=== PATIENT | female | born 1955 | race Asian ===

== ENCOUNTER 2018-09-03 10:17 | Inpatient (IN) | payer MEDICAID ==
[~2018-09-03] VITALS: Ht 154.9 cm; Wt 72.1 kg
[2018-09-03] MEDS ORDERED: GLIP5 PO (10:24)
[2018-09-03] MEDS ORDERED: LOSA25TA41 PO (10:24)
[2018-09-03] MEDS ORDERED: AMLO2.5T4 PO (10:24)
[2018-09-03 10:35] LABS: GLUCOSE,POINT OF CARE 280 MG/DL (70-110)
[2018-09-03] MEDS ORDERED: NITROGLYCERIN 0.4 MG SUBLINGUAL TABLET #25 SL ONE (11:45)
[2018-09-03] MEDS ORDERED: ASPIRIN 325 MG TABLET PO ONE (11:45)
[2018-09-03 12:19] LABS: BASOPHILS % (AUTO) 0.5 % (0.0-2.0); EOSINOPHILS % (AUTO) 1.4 % (1.0-6.0); HEMOGLOBIN 14.2 g/dL (12.0-16.0); LYMPHOCYTES % (AUTO) 26.8 % (22.0-44.0); MEAN CORPUSCULAR HEMOGLOBIN 30.3 pg (26.0-34.0); MEAN CORPUSCULAR VOLUME 92 fL (80-100); MONOCYTES # (AUTO) 0.4 K/uL (0.1-1.0); MONOCYTES % (AUTO) 5.6 % (2.0-9.0); NEUTROPHILS # (AUTO) 4.9 K/uL (1.8-7.7); NEUTROPHILS % (AUTO) 65.7 % (40.0-70.0); PLATELET COUNT (AUTO) 190 K/uL (150-450); RED BLOOD CELL COUNT(AUTO) 4.69 MIL/uL (4.00-5.20); RED CELL DISTRIBUTION WIDTH 13.2 % (11.5-14.5)
[2018-09-03 12:25] LABS: CALCIUM, TOTAL 8.8 mg/dL (8.8-10.5); POTASSIUM 4.2 mmol/L (3.5-5.1)
[2018-09-03 12:34] LABS: ALBUMIN 3.5 g/dL (3.4-5.0); BILIRUBIN,TOTAL 1.1 mg/dL (0.1-1.0); TOTAL PROTEIN, SERUM 6.7 g/dL (6.4-8.2)
[2018-09-03 13:23] LABS: APPEARANCE,URINE CLEAR (CLEAR); BILIRUBIN,URINE NEGATIVE (NEGATIVE); GLUCOSE, URINE (UA) 100 mg/dL (NEGATIVE); KETONES,URINE NEGATIVE (NEGATIVE); LEUKOCYTE ESTERASE ,URINE NEGATIVE (NEGATIVE); NITRATE,URINE NEGATIVE (NEGATIVE); OCCULT BLOOD,URINE NEGATIVE (NEGATIVE); PROTEIN,URINE NEGATIVE (NEGATIVE); UROBILINOGEN,URINE 0.2 mg/dL (<=1.0)
[2018-09-03] MEDS ORDERED: ACETAMINOPHEN 325 MG TABLET PO PRN ×2 (13:30→19:00)
[2018-09-03] MEDS ORDERED: ATORVASTATIN CALCIUM 20 MG TABLET PO ONE (13:30)
[2018-09-03] MEDS ORDERED: METOPROLOL TARTRATE 50 MG TABLET PO ONE (13:30)
[2018-09-03] MEDS ORDERED: HEPARIN SODIUM,PORCINE 5,000 UNITS/ML VIAL IVP PRN ×2 (13:30)
[2018-09-03] MEDS ORDERED: 0.9% SODIUM CHLORIDE 10 ML SYRINGE IVP PRN ×2 (13:30→19:00)
[2018-09-03] MEDS ORDERED: HEPARIN SODIUM 25000 UNITS/D5W 250 ML IV PRN (13:30)
[2018-09-03] MEDS ORDERED: ONDANSETRON HCL 4 MG/2 ML VIAL IVP PRN ×2 (13:30→19:00)
[2018-09-03 13:37] LABS: BACTERIA,URINE Rare /HPF (None Seen); SQUAMOUS EPITHELIAL CELL,UR Few /LPF (None Seen); WBC,URINE 0-2 /HPF (0-5)
[2018-09-03] MEDS ORDERED: HEPARIN SODIUM,PORCINE 5,000 UNITS/ML VIAL IVP ONE (13:45)
[2018-09-03 14:30] LABS: INR 0.9 (0.9-1.1); PROTHROMBIN TIME 9.9 SEC (9.4-11.6)
[2018-09-03] MEDS: ASPIRIN 81 MG EC TABLET PO SCH (14:45)
[2018-09-03] MEDS: ATORVASTATIN CALCIUM 40 MG TABLET PO SCH (14:45)
[2018-09-03] MEDS ORDERED: FUROSEMIDE 40 MG/4 ML VIAL IVP ONE (14:45)
[2018-09-03] MEDS: PANTOPRAZOLE SODIUM 40 MG/VIAL IVP SCH (15:57)
[2018-09-03] MEDS: CARVEDILOL 3.125 MG TABLET PO SCH ×2 (15:58→21:20)
[2018-09-03] MEDS: LOSARTAN POTASSIUM 25 MG TABLET PO SCH ×2 (15:58→21:20)
[2018-09-03] MEDS: NITROGLYCERIN 2% (1 GM=INCH) PACKET TP SCH (16:00)
[2018-09-03] MEDS ORDERED: GLUCAGON,HUMAN RECOMBINANT 1 MG VIAL IM PRN (19:00)
[2018-09-03] MEDS ORDERED: ZOLPIDEM TARTRATE 5 MG TABLET PO PRN (19:00)
[2018-09-03] MEDS ORDERED: PANTOPRAZOLE SODIUM 40 MG/VIAL IVP SCH (19:00)
[2018-09-03] MEDS ORDERED: LOSARTAN POTASSIUM 25 MG TABLET PO SCH (19:00)
[2018-09-03] MEDS ORDERED: DEXTROSE 50%-WATER 25 GM/50 ML SYRINGE IVP PRN (19:15)
[2018-09-03] MEDS: ENOXAPARIN SODIUM 40 MG/0.4 ML PF SYRINGE SQ SCH (19:49)
[2018-09-03] MEDS ORDERED: AmLODIPine BESYLATE 2.5 MG TABLET PO SCH (21:00)
[2018-09-03] MEDS ORDERED: METOPROLOL TARTRATE 25 MG TABLET PO SCH (21:00)
[2018-09-03] MEDS: INSULIN LISPRO 100 UNITS/ML SQ PRN (21:22)
[2018-09-03 21:30] VITALS: BP 125/69
[2018-09-04] VITALS (8 sets, daily range): BP systolic 97–135; BP diastolic 47–81
[2018-09-04 03:49] LABS: GLUCOMETER DEV NAME(LOC) 5S.1; GLUCOSE,POINT OF CARE 233 MG/DL (70-110)
[2018-09-04 05:55] LABS: BASOPHILS % (AUTO) 0.7 % (0.0-2.0); EOSINOPHILS % (AUTO) 2.8 % (1.0-6.0); HEMATOCRIT 39.2 % (36-46); HEMOGLOBIN 13.2 g/dL (12.0-16.0); LYMPHOCYTES # (AUTO) 2.9 K/uL (1.0-4.8); MEAN CORPUSCULAR HEMOGLOBIN 30.5 pg (26.0-34.0); MEAN CORPUSCULAR HGB CONC 33.8 G/dL (31.0-37.0); MEAN CORPUSCULAR VOLUME 90 fL (80-100); MONOCYTES # (AUTO) 0.6 K/uL (0.1-1.0); MONOCYTES % (AUTO) 8.4 % (2.0-9.0); NEUTROPHILS # (AUTO) 3.3 K/uL (1.8-7.7); NEUTROPHILS % (AUTO) 47.1 % (40.0-70.0); PLATELET COUNT (AUTO) 184 K/uL (150-450); RED BLOOD CELL COUNT(AUTO) 4.34 MIL/uL (4.00-5.20); RED CELL DISTRIBUTION WIDTH 13.5 % (11.5-14.5)
[2018-09-04] MEDS ORDERED: PNEUMOCOCCAL VACCINE POLYVALENT 0.5 ML VIAL [PPSV23] IM ONE (06:00)
[2018-09-04 06:21] LABS: HEMOGLOBIN A1C 8.8 % (4.5-6.2)
[2018-09-04 06:33] LABS: B-TYPE NATRIURETIC PEPTIDE 783 pg/mL (0-100)
[2018-09-04 06:37] LABS: GLUCOMETER DEV NAME(LOC) 5S.2; GLUCOSE,POINT OF CARE 126 MG/DL (70-110)
[2018-09-04 06:40] LABS: ALANINE AMINOTRANSFERASE 56 U/L (12-78); ALBUMIN 2.9 g/dL (3.4-5.0); ALKALINE PHOSPHATASE 54 U/L (46-116); ANION GAP 5 mmol/L (8-16); ASPARTATE AMINOTRANSFERASE 29 U/L (15-37); BILIRUBIN,TOTAL 1.1 mg/dL (0.1-1.0); CALCIUM, TOTAL 8.5 mg/dL (8.8-10.5); CARBON DIOXIDE 29 mmol/L (22-29); CHLORIDE 104 mmol/L (98-107); CREATININE 0.76 mg/dL (0.60-1.30); GLOMERULAR FILTR. RATE CALC > 60 mL/min (>60); GLUCOSE,RANDOM 114 mg/dL (70-110); HDL CHOLESTEROL 36 mg/dL (40-60); POTASSIUM 3.2 mmol/L (3.5-5.1); SODIUM SERUM 138 mmol/L (136-145); TOTAL PROTEIN, SERUM 5.5 g/dL (6.4-8.2); TRIGLYCERIDES 94 mg/dL (15-150); UREA NITROGEN, BLOOD 13 mg/dL (7-18)
[2018-09-04 06:50] LABS: CHOLESTEROL 145 mg/dL (131-200); LDL CHOL (CALC.) 90 mg/dL (0-130)
[2018-09-04] MEDS ORDERED: POTASSIUM CHLORIDE 20 MEQ ER TABLET PO ONE (07:30)
[2018-09-04] MEDS: NITROGLYCERIN 2% (1 GM=INCH) PACKET TP SCH ×3 (08:00→14:33)
[2018-09-04] MEDS: ASPIRIN 81 MG EC TABLET PO SCH (08:41)
[2018-09-04] MEDS: PANTOPRAZOLE SODIUM 40 MG/VIAL IVP SCH (08:41)
[2018-09-04] MEDS: LOSARTAN POTASSIUM 50 MG TABLET PO SCH ×2 (08:41→20:56)
[2018-09-04] MEDS: ENOXAPARIN SODIUM 40 MG/0.4 ML PF SYRINGE SQ SCH (08:41)
[2018-09-04] MEDS: ATORVASTATIN CALCIUM 40 MG TABLET PO SCH (08:42)
[2018-09-04] MEDS: CARVEDILOL 6.25 MG TABLET PO SCH ×2 (08:42→21:00)
[2018-09-04] MEDS: FUROSEMIDE 20 MG/2 ML VIAL IVP SCH (08:42)
[2018-09-04] MEDS: INSULIN LISPRO 100 UNITS/ML SQ PRN ×3 (11:44→21:04)
[2018-09-04 13:04] LABS: GLUCOMETER DEV NAME(LOC) 5S.1; GLUCOSE,POINT OF CARE 156 MG/DL (70-110)
[2018-09-05] VITALS (18 sets, daily range): BP systolic 90–150; BP diastolic 50–91
[2018-09-05 02:37] LABS: GLUCOMETER DEV NAME(LOC) 5S.1; GLUCOSE,POINT OF CARE 184 MG/DL (70-110)
[2018-09-05 02:37] LABS: GLUCOMETER DEV NAME(LOC) 5S.1; GLUCOSE,POINT OF CARE 142 MG/DL (70-110)
[2018-09-05 06:41] LABS: BASOPHILS % (AUTO) 0.7 % (0.0-2.0); EOSINOPHILS % (AUTO) 2.4 % (1.0-6.0); HEMATOCRIT 39.9 % (36-46); HEMOGLOBIN 13.5 g/dL (12.0-16.0); LYMPHOCYTES # (AUTO) 2.1 K/uL (1.0-4.8); LYMPHOCYTES % (AUTO) 33.6 % (22.0-44.0); MEAN CORPUSCULAR HEMOGLOBIN 30.8 pg (26.0-34.0); MEAN CORPUSCULAR HGB CONC 33.8 G/dL (31.0-37.0); MEAN CORPUSCULAR VOLUME 91 fL (80-100); MONOCYTES # (AUTO) 0.6 K/uL (0.1-1.0); MONOCYTES % (AUTO) 8.9 % (2.0-9.0); NEUTROPHILS # (AUTO) 3.5 K/uL (1.8-7.7); NEUTROPHILS % (AUTO) 54.4 % (40.0-70.0); PLATELET COUNT (AUTO) 184 K/uL (150-450); RED BLOOD CELL COUNT(AUTO) 4.38 MIL/uL (4.00-5.20); RED CELL DISTRIBUTION WIDTH 13.1 % (11.5-14.5)
[2018-09-05] MEDS: INSULIN LISPRO 100 UNITS/ML SQ PRN ×3 (06:58→21:43)
[2018-09-05 07:05] LABS: ALBUMIN 3.1 g/dL (3.4-5.0); BILIRUBIN,TOTAL 0.9 mg/dL (0.1-1.0); CALCIUM, TOTAL 8.7 mg/dL (8.8-10.5); CREATININE 1.14 mg/dL (0.60-1.30); MAGNESIUM 1.9 mg/dL (1.80-2.40); POTASSIUM 3.7 mmol/L (3.5-5.1); TOTAL PROTEIN, SERUM 5.8 g/dL (6.4-8.2)
[2018-09-05] MEDS: NITROGLYCERIN 2% (1 GM=INCH) PACKET TP SCH ×4 (08:00→23:54)
[2018-09-05 08:09] LABS: GLUCOMETER DEV NAME(LOC) 5S.1; GLUCOSE,POINT OF CARE 155 MG/DL (70-110)
[2018-09-05] MEDS: PANTOPRAZOLE SODIUM 40 MG/VIAL IVP SCH (08:37)
[2018-09-05] MEDS: ASPIRIN 81 MG EC TABLET PO SCH (08:38)
[2018-09-05] MEDS: ATORVASTATIN CALCIUM 40 MG TABLET PO SCH (08:38)
[2018-09-05] MEDS: CARVEDILOL 6.25 MG TABLET PO SCH ×2 (08:39→21:42)
[2018-09-05] MEDS: LOSARTAN POTASSIUM 50 MG TABLET PO SCH ×2 (09:00→21:42)
[2018-09-05] MEDS: FUROSEMIDE 20 MG/2 ML VIAL IVP SCH (09:00)
[2018-09-05] MEDS: ENOXAPARIN SODIUM 40 MG/0.4 ML PF SYRINGE SQ SCH (09:00)
[2018-09-05] MEDS ORDERED: HEPARIN SODIUM 1000 UNITS/NS 1,000 ML ONE (11:58)
[2018-09-05] MEDS ORDERED: IOHEXOL 300 MG/ML 150 ML VIAL ONE (11:58)
[2018-09-05] MEDS ORDERED: SODIUM BICARBONATE 50 MEQ/50 ML VIAL ONE (11:58)
[2018-09-05] MEDS ORDERED: LIDOCAINE/PF 1% 30 ML VIAL ONE (11:58)
[2018-09-05] MEDS ORDERED: FentaNYL CITRATE-PF 100 MCG/2 ML VIAL ONE (12:39)
[2018-09-05] MEDS ORDERED: MIDAZOLAM HCL 2 MG/2 ML VIAL ONE (12:40)
[2018-09-05] MEDS ORDERED: HEPARIN SODIUM 2,000 UNITS in HEPARIN SODIUM 1000 UNITS/NS 1,000 ML IARTER ONE (12:44)
[2018-09-05] MEDS ORDERED: SODIUM CHLORIDE 0.9% 500 ML IV ONE (12:44)
[2018-09-05] MEDS ORDERED: LIDOCAINE 1% 30 ML/SOD BICARB 8.4% 4 ML SQ ONE (12:45)
[2018-09-05] MEDS ORDERED: FentaNYL CITRATE-PF 100 MCG/2 ML VIAL IVP ONE (12:45)
[2018-09-05] MEDS ORDERED: MIDAZOLAM HCL 2 MG/2 ML VIAL IVP ONE (12:45)
[2018-09-05] MEDS ORDERED: IOHEXOL 300 MG/ML 150 ML VIAL IARTER ONE (12:45)
[2018-09-05 13:39] LABS: GLUCOMETER DEV NAME(LOC) 5S.1; GLUCOSE,POINT OF CARE 158 MG/DL (70-110)
[2018-09-05 23:28] LABS: GLUCOMETER DEV NAME(LOC) 5S.1; GLUCOSE,POINT OF CARE 177 MG/DL (70-110)
[2018-09-05 23:28] LABS: GLUCOMETER DEV NAME(LOC) 5S.2; GLUCOSE,POINT OF CARE 218 MG/DL (70-110)
[2018-09-06 04:17] VITALS: BP 97/59
[2018-09-06 06:25] LABS: GLUCOMETER DEV NAME(LOC) 5S.2; GLUCOSE,POINT OF CARE 146 MG/DL (70-110)
[2018-09-06 07:37] LABS: BASOPHILS % (AUTO) 0.3 % (0.0-2.0); EOSINOPHILS % (AUTO) 1.4 % (1.0-6.0); HEMATOCRIT 38.2 % (36-46); HEMOGLOBIN 13.1 g/dL (12.0-16.0); LYMPHOCYTES % (AUTO) 28.4 % (22.0-44.0); MEAN CORPUSCULAR HEMOGLOBIN 30.9 pg (26.0-34.0); MEAN CORPUSCULAR HGB CONC 34.2 G/dL (31.0-37.0); MEAN CORPUSCULAR VOLUME 90 fL (80-100); MONOCYTES # (AUTO) 0.6 K/uL (0.1-1.0); MONOCYTES % (AUTO) 7.9 % (2.0-9.0); NEUTROPHILS # (AUTO) 4.4 K/uL (1.8-7.7); PLATELET COUNT (AUTO) 179 K/uL (150-450); RED BLOOD CELL COUNT(AUTO) 4.23 MIL/uL (4.00-5.20); RED CELL DISTRIBUTION WIDTH 13.5 % (11.5-14.5)
[2018-09-06 07:41] VITALS: BP 128/52
[2018-09-06 08:03] LABS: BILIRUBIN,TOTAL 0.8 mg/dL (0.1-1.0); CALCIUM, TOTAL 8.9 mg/dL (8.8-10.5); CREATININE 1.19 mg/dL (0.60-1.30); POTASSIUM 4.3 mmol/L (3.5-5.1); TOTAL PROTEIN, SERUM 5.7 g/dL (6.4-8.2)
[2018-09-06] MEDS: NITROGLYCERIN 2% (1 GM=INCH) PACKET TP SCH ×2 (08:23→16:11)
[2018-09-06] MEDS: PANTOPRAZOLE SODIUM 40 MG/VIAL IVP SCH (08:23)
[2018-09-06] MEDS: CARVEDILOL 6.25 MG TABLET PO SCH (08:23)
[2018-09-06] MEDS: ENOXAPARIN SODIUM 40 MG/0.4 ML PF SYRINGE SQ SCH (08:25)
[2018-09-06] MEDS ORDERED: FUROSEMIDE 20 MG TABLET PO SCH (09:00)
[2018-09-06] MEDS ORDERED: SACUBITRIL/VALSARTAN 24-26 MG TABLET PO SCH (09:00)
[2018-09-06] MEDS ORDERED: POTASSIUM CHLORIDE 8 MEQ ER TABLET PO SCH (09:00)
[2018-09-06 11:25] VITALS: BP 106/72
[2018-09-06] MEDS: INSULIN LISPRO 100 UNITS/ML SQ PRN (11:37)
[2018-09-06 12:13] LABS: GLUCOMETER DEV NAME(LOC) 5S.2; GLUCOSE,POINT OF CARE 219 MG/DL (70-110)
[2018-09-06 15:26] VITALS: BP 128/55
[2018-09-06] MEDS ORDERED: CARV6.2579 PO (16:39)
[2018-09-06] MEDS ORDERED: FURO-152 PO (16:40)
[2018-09-06] MEDS ORDERED: KDUR10 PO (16:41)
[2018-09-06] MEDS ORDERED: SACU1TAB PO (16:42)
== END 2018-09-06 17:35 | disposition home or self-care (01) | DRG 190 ==
LOC: EMS 10:18 → 5S 18:47
PROVIDERS: ADMIT Internal Medicine; ATTEND Internal Medicine
PROC: 4A023N7 Measurement of Cardiac Sampling and Pressure, Left Heart, Percutaneous Approach (ICD-10-PCS; principal; 2018-09-05)
PROC: B2111ZZ Fluoroscopy of Multiple Coronary Arteries using Low Osmolar Contrast (ICD-10-PCS; 2018-09-05)
PROC: B2151ZZ Fluoroscopy of Left Heart using Low Osmolar Contrast (ICD-10-PCS; 2018-09-05)
DX: I21.4 Non-ST elevation (NSTEMI) myocardial infarction (principal); I50.21 Acute systolic (congestive) heart failure; I42.9 Cardiomyopathy, unspecified; E11.65 Type 2 diabetes mellitus with hyperglycemia; I11.0 Hypertensive heart disease with heart failure; I25.2 Old myocardial infarction; E78.5 Hyperlipidemia, unspecified; E87.6 Hypokalemia; I25.10 Atherosclerotic heart disease of native coronary artery without angina pectoris; X58.XXXA Exposure to other specified factors, initial encounter; Y99.0 Civilian activity done for income or pay; Z79.84 Long term (current) use of oral hypoglycemic drugs; Z82.49 Family history of ischemic heart disease and other diseases of the circulatory system
CPT/HCPCS: 83036; 83735; 93005; 93306; 96365; 96372; 96375; 99291; C9113; G0378; J1644; J1650; J1940; J2250; J3010; J3490; Q9967